=== PATIENT | female | born 1930 | race Caucasian/White ===

== ENCOUNTER 2017-02-24 17:33 | Emergency (ER) | payer MEDICARE, OTHER ==
[~2017-02-24] VITALS: Ht 168.9 cm; Wt 90.7 kg
[~2017-02-24 17:33] MED LIST: ALLOPURINOL100 MG PO; ATENOLOL25 M1 PO; COUMADIN 5MG TAB5 MG PO; DIGITEK0.125 MG PO; GLUMETZA1000 MG PO; LASIX 40MG. TAB40 MG PO; LOSARTAN POTASS50 MG PO; MICRO-K 10 MEQ10 MEQ PO; NORPACE150 MG PO; PAROXETINE HCL30 MG PO; PAXIL10 MG PO; POTASSIUM CHLO10 MEQ PO; SLOW FE45 MG PO; TENORETIC 50 501 TAB PO; TYLENOL ES500 M1 PO; VITAMIN B121 TA1 PO; WARFARIN SODIUM4 MG PO
[2017-02-24] MEDS ORDERED: GLYBURIDE 5MG TA5 MG PO (17:40)
--- NOTE | 2017-02-24 17:45 | Emergency Room Report ---
History of Present Illness Time Seen by [id number] Presenting Problem in Triage Pt arrived:Wheelchair Presenting Problem:PT C/O SLURRED SPEECH AND ADVISES SHE JUST DOESN'T FEEL RIGHT IN HER HEAD. 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 N Clinical Suspician of Infection? N Mental Status: 1 - Regular (Normal Baseline) Sepsis Risk:Low Sepsis Risk Have you (or family members/close friends) recently traveled outside the [place]? N If Yes, where/when: Have you had exposure to infectious disease within the past month? N TB? Other? Specify: Patient stating she is having a hard time finding her words; onset roughly 1630 or 1645; patient on Coumadin and has hx of TIA. No cephalgia. Ambulatory in ED. No numbness or weakness. No syncope. Source patient (friend) ALLERGIES Coded Allergies: quinidine (Mild, 02/24/17) Home Medications Active Scripts WARFARIN SOD (Coumadin) 5 MG PO DAILY #30 TABLET Ref 2 Prov: 03/03/15 Reported Medications Losartan Potassium (Losartan 50MG) 50 MG PO DAILY #30 Potassium Chloride (POTASSIUM CHLORIDE 10mEq CAP) 10 MEQ PO TID #90 Allopurinol 100 MG PO DAILYP PRN GOUT #30 PAROXETINE HCL (Paroxetine HCl) 15 MG PO DAILY #15 Furosemide (Lasix 40MG) 40 MG PO DAILY Iron (Slow Fe) 45 MG PO CYANOCOBALAMIN (VITAMIN B-12) (Vitamin B-12) 1 TAB PO Glyburide (Glyburide 5MG) 5 MG PO BIDD #60 History Medical History General CAD? No Angina: No NE: No Hypertension? Yes Hyperlipidemia? Yes CHF? No DVT? No PE? No COPD? No Asthma? No Anemia? No GERD? No Gastric ulcers? No GI Bleed? No Hernia? Yes Thyroid Problems? No Hypothyroidism? No CVA? Yes Seizures? No Diabetes? Yes Insulin Dependent: No Insulin Pump: No Home FSBS? No Renal Insuffiency? No End Stage Renal Disease? No UTI? Yes Stones? No BPH? No GB Disease: No Nephritic Syndrome? No Asplenia? No Hepatitis? No Sickle Cell Disease? No Arthritis? No Migraines? No Cataracts? Yes Glaucoma? No MRSA? No HIV? No TB? No Anxiety? No Depression? No Cancer? No More? No Immunization Hx DT/Tetanus > 10 Years Ago Flu Refused Pneumonia Received In Past Surgical Hx Previous Surgery?Y APPENDECTOMY REMOVAL OF TOE COLONOSCOPY NAVAL HERNIA Family History Family Hx Diabetes No CAD Yes Hypertension Yes Hyperlipidemia No Cancer No TB No Social History Smoking Hx Smoker: Never Smoker Tobacco: No Alcohol Alcohol: No Review of Systems All Other Systems Reviewed and Negative Psychiatric/Neurological see HPI Physical Exam Vital Signs Vital Signs Date Time Temp Pulse Resp B/P Pulse O2 O2 Flow FiO2 Ox Delivery Rate 02/24 1939 98.6 84 16 159/100 98 02/24 1929 84 16 159/100 98 02/24 1902 85 16 192/96 97 02/24 1835 84 16 167/72 98 02/24 1734 98.6 85 16 98 General Appearance normal appearance (182/83 BP), WD/WN, no apparent distress Eye Exam - bilateral eye normal exam, bilateral eye PERRL, bilateral eye EOMI (no diplopia or field cuts) Neck normal inspection, non-tender, supple, full range of motion Respiratory Status Yes: trachea midline, chest symmetrical, non tender chest. No: respiratory distress, tender on palpation, use of accessory muscles, pain on inspiration, pain on expiration, productive cough, non productive cough. Lung Sounds bilateral: normal breath sounds, lungs clear. Cardiovascular normal exam, regular rate/rhythm, no peripheral edema, no gallop, no JVD, no murmur, no rub, normal peripheral pulses Gastrointestinal normal bowel sounds, normal exam, non tender, soft, no organomegaly, no pulsatile mass, no guarding, no rebound Extremities non-tender, normal range of motion, normal inspection, normal capillary refill, no calf tenderness, no pedal edema Neurologic alert, behavioral scientist II-XII nml as tested, normal exam, no motor/sensory deficits, oriented x 3 (very mild expressive aphasia), piping engineer equal; ambulatory w /o assistance and w/o ataxia; speech slow as she thinks of words and is eventually able to express them; comprehension excellent; no kenton slurring of speech Glascow Coma Scale Glascow Coma Scale Response Value EYE response: 4 Spontaneously 4 MOTOR response: 6 OBEYS 6 VERBAL response: 5 Oriented & Converses 5 Total 15 Reflexes Reflexes normal Yes Skin intact, normal color, warm/dry Stroke Score/Tx Stroke Evaluation NIH STROKE SCORE NIH STROKE SCORE Response Value 1a.Level of Consciousness ALERT 0 1b.LOC Questions ANSWERS BOTH CORRECTLY 0 1c.LOC Commands OBEYS BOTH CORRECTLY 0 2 .Best Gaze NORMAL 0 3 .Visual NO VISUAL LOSS 0 4 .Facial Palsy NORMAL 0 5a.Motor Arm Left NO DRIFT 0 5b.Motor Arm Right NO DRIFT 0 6a.Motor Leg Left NO DRIFT 0 6b.Motor Leg Right NO DRIFT 0 7 .Limb Ataxia ABSENT 0 8 .Sensory NORMAL 0 9 .Best Language MILD TO MODERATE APHASIA 1 10.Dysarthria NORMAL ARTICULATION 0 ED.NIH11 NO NEGLECT 0 Total 1 Treatment Consideration t-PA ordered? No (neuro states not ind.;mild sx) Medical Decision Making LABS/Meds/Orders Pt receiving controlled substance in ED? No Results/Orders Laboratory Tests 02/24/171904: Troponin I Cancelled 02/24/17 1739: Creatine Kinase 70, CK-MB (CK-2) Rel Index 1.1, CK and CKMB Interp 0.8, Troponin I < 0.02 02/24/17 1739: Sodium 139, Potassium 4.6, Chloride 102, Carbon Dioxide 27, BUN 18, Creatinine 1.1 H, Estimated Creat Clear 54, Estimated GFR (MDRD) 47 L, Glucose 172 H, Calcium 8.5, PT 26.6 H, INR 2.49 H, WBC 7.9, RBC 4.47, Hgb 14.5, Hct 44.4, MCV 99.4 H, RDW 14.2, Plt Count 248, MPV 6.2 L, Gran % 68.6, Gran # 5.4, Lymphocytes % 22.7, Monocytes % 6.7, Eosinophils % 1.5, Basophils % 0.5, Lymphocytes # 1.8, Monocytes # 0.5, Eosinophils # 0.1, Basophils # 0.0, PUBS MCHC 32.8, MCH 32.6 H Current Medication Orders Sig/Bianka Start time Last Medication Dose Route Stop Time Status Admin Aspirin 0 .STK-MED ONE 02/24 1921 DC .ROUTE Aspirin 325 MG ONCE ONE 02/24 1915 DC 02/24 PO 02/24 Acetaminophen 650 MG ONCE ONE 02/24 1900 DC 02/24 PO 02/24 190 1900 Acetaminophen 0 .STK-MED ONE 02/24 1859 DC PO Sodium Chloride 10 ML PRN PRN 02/24 1745 AC IV 02/25 1741 Orders Procedure Date/time Status DIET-NOTHING BY MOUTH 02/25 B Active CARDIAC ENZYMES 02/24 1905 Complete 12 LEAD EKG-JOSE ANTONIOSON (INITIAL) 02/24 1837 Active ELECTROCARDIOGRAM REQUEST 02/24 1837 Active IV SALINE LOCK 02/24 1742 Active PROTHROMBIN TIME 02/24 1742 Complete CBC WITH AUTO DIFF 02/24 1742 Complete BASIC METABOLIC PROFILE 02/[address] HEAD REQ 02/24 1741 Complete CM/EKG CM/EKG EKG rate, rhythm, no evid. of ischemic chgs, no ectopy (rate controlled AFIB 60-100), non-spec. ST/Twave chgs XRAY/CT/US XRAY/CT/US CT head CT interpretation by reviewed by me (old right temporal infarct) Time results known: 1824 Consult MD Physician Consult 1 Time Called 1824 Reason Transfer to facility, Neuro eval/care Physician Consult 2 Consult/PCP Dr. Leija hospitalist [facility] in [place] accepting. Time Called 1833 Reason Pt. Condition, Transfer to facility, Neuro eval/care Comments Dr. Lou neurology stated call hospitalist at [facility]; hospitalist paged; no TPA indicated per d/w Dr. Lou. Physician Consult 3 Consult/PCP Dr. Richmond [facility] Stroke team accepting patient. Patient speech clearing. Time Called 1915 Reason Transfer to facility Comments Stroke team paged per patient and family request. Bed availability at [facility] unknown at this time. Patient speech improving. Progress ED Progress Notes 1 Date 02/24/17 Time 1743 [address] ED Progress Notes 2 Date 02/24/17 Time 1825 Comment Patient with less expressive aphasia currently. I spoke briefly with her daughter on the phone. I am paging stroke team at [facility] per patient selection of facilities; with her sx, needs neurology evaluation. BP 148/84. Departure Departure Time of Disposition 1924 Disposition DC/XFER from ER to [facility] Clinical Impression Primary Impression: Stroke-like symptoms Condition STABLE Referrals Patrick Zaragoza MD (Family) ED Critical Care Critical Care Yes Time spent 30-74 min Vital system(s) involved: Circulatory Failure (stroke like symptoms) I was present at bedside for Coordinating pt's care, Interpreting EKGs/Strips , During my initial exam, Reviewing lab results, Discussing pt condition, For re -examinations (consults x two;d/w pt;d/w fam.) at 1940
[2017-02-24 17:55] LABS: LYMPH # 1.8 K/mm3 (0.7-4.5); LYMPH % 22.7 % (10-50.0)
[2017-02-24 18:00] LABS: HEMOGLOBIN 14.5 g/dL (12.2-16.2)
--- NOTE | 2017-02-24 18:06 | RADIOLOGY REPORT PS360 ---
CT HEAD W/O CONTRAST HISTORY: Confusion, altered level of consciousness, altered mental status, speech difficulty STROKE PROTOCOL....DIFFICULTY W/SPEECH ORDERING PHYSICIAN: PATIENT AGE: 86 years COMPARISON: 03/01/2015 TECHNIQUE: Axial images obtained without contrast. Brain and bone windows reviewed. FINDINGS: No midline shift, mass effect, intracranial hemorrhage, hydrocephalus, or extra-axial fluid collection is evident. There is generalized atrophy with hypoattenuation periventricular and subcortical regions consistent with ischemic gliotic change from microvascular disease. Encephalomalacia changes are present in the right temporal lobe The calvarium has an unremarkable appearance. No mastoid effusion. The visualized paranasal sinuses are unremarkable. IMPRESSION: 1. Atrophy with chronic ischemic changes. 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 3. No change from 03/01/2015 with no acute finding. 4. There is no evidence of intracranial hemorrhage, focal mass, or acute territorial infarction. A negative CT does not exclude an acute CVA. A follow-up head CT or MRI is recommended if neurological symptoms persist .
[2017-02-24 19:39] VITALS: BP 159/100
== END 2017-02-24 19:42 | disposition short-term general hospital (02) ==
LOC: ER 17:33
PROVIDERS: Emergency Medicine
DX: G45.8 Other transient cerebral ischemic attacks and related syndromes (principal); Z79.01 Long term (current) use of anticoagulants; I10 Essential (primary) hypertension; R29.701 NIHSS score 1

== ENCOUNTER → 2017-03-29 | Outpatient (CLI) | payer MEDICARE, OTHER ==
[~2017-03-29] MED LIST changes: +GLYBURIDE 5MG TA5 MG PO
--- NOTE | 2017-03-29 15:01 | RADIOLOGY REPORT PS360 ---
[id number] VIEWS HISTORY: LEFT SHOULDER PAIN ORDERING PHYSICIAN: Patrick Zaragoza MD PATIENT AGE: 86 years COMPARISON: None FINDINGS: No fracture or dislocation. No lytic or blastic change. There is normal mineralization. Moderate osteoarthritic changes involve the glenohumeral joint with decrease in the joint space, osteosclerosis, and osteophyte formation. There is decrease in the acromio humeral space. Osteoarthritic changes also involve the acromioclavicular joint. Small calcific density is present at the base of the coracoid process measuring 11 mm. No acute fracture or dislocation. IMPRESSION: 1. 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 This may be better evaluated with MRI if clinically warranted. 2. Nonspecific calcific density at the base of the coracoid possibly due to a loose body.
== END ==
LOC: RAD 14:23
DX: M25.512 Pain in left shoulder (principal)